=== PATIENT | female | born 1970 | race Caucasian/White ===

== ENCOUNTER → 2021-12-07 13:22 | Outpatient (CLI) | payer BC, OTHER, SELFPAY ==
--- NOTE | 2021-12-07 | CA_ITS ---
FINAL REPORT TECHNIQUE: Ultrasound images of the deep venous system were obtained from the left groin to the calf veins. CLINICAL HISTORY: Leg pain x 2 weeks, edema, on Coumadin and ASA. TDE d/t body habitus. FINDINGS: Limited study secondary to patient body habitus. The measure lies deep venous system is normally compressible. Normal flow is identified. IMPRESSION: No evidence of left lower extremity DVT. Reviewed, Interpreted and Dictated by Carrington Painting MD Transcribed by Leandro Pang Authenticated and [facility]
== END ==
PROVIDERS: PCP Family Medicine; Visit Provider Family Medicine
DX: M79.605 Pain in left leg (principal); R60.0 Localized edema
CPT/HCPCS: 93971

== ENCOUNTER 2023-02-19 10:30 | Outpatient (RCR) | payer BC, OTHER, SELFPAY | END 2023-02-19 11:30 | disposition home or self-care (01) | LOC: PT 10:30 | PROVIDERS: PCP Family Medicine; Visit Provider Family Medicine | DX: R10.30 Lower abdominal pain, unspecified; S31.109D Unspecified open wound of abdominal wall, unspecified quadrant without penetration into peritoneal cavity, subsequent encounter | CPT/HCPCS: 97163; 97597 ==